=== PATIENT | female | born 1995 | race Two or more races ===

== ENCOUNTER 2019-03-17 02:27 | Emergency (ER) | payer OTHER ==
[~2019-03-17] VITALS: Ht 152.4 cm; Wt 47.6 kg
[2019-03-17] MEDS ORDERED: ONDANSETRON 4 MG/2 ML VIAL ONE ×2 (03:14→04:55)
[2019-03-17] MEDS ORDERED: ONDANSETRON 4 MG/2 ML VIAL IV ONE ×2 (03:15→05:00)
[2019-03-17] MEDS ORDERED: IV NS 1000 ML 1,000 ML IV ONE (03:15)
--- NOTE | 2019-03-17 03:15 | NUR ---
Patient walked into ER c/o intermitten N/V for 2 days with diarrhea that started yesterday.
[2019-03-17 03:44] LABS: CREATININE 0.6 mg/dL (0.6-1.3); POTASSIUM 3.9 mmol/L (3.5-5.1)
[2019-03-17 03:44] LABS: *BILIRUBIN,URIN NEGATIVE (NEGATIVE); *CLARITY,URINE CLEAR (CLEAR); *COLOR,URINE YELLOW (YELLOW); *KETONES,URINE NEGATIVE (NEGATIVE); *UROBILINOGEN,URINE 0.2 E.U./dl (NORMAL); LEUKOCYTE ESTERASE ,URINE NEGATIVE (NEGATIVE); NITRITE, URINE NEGATIVE (NEGATIVE); PH,URINE 6.5 (5.0-8.0); UGLUCOSE NEGATIVE (NEGATIVE)
[2019-03-17 03:45] LABS: BASOPHILS % (AUTO) 0.8 % (0.0-2.0); EOSINOPHILS # (AUTO) 0.1 K/uL (0.0-0.7); EOSINOPHILS % (AUTO) 1.8 % (0.0-7.0); HEMATOCRIT 40.6 % (31.2-41.9); HEMOGLOBIN 13.7 g/dL (10.9-14.3); LYMPHOCYTES # (AUTO) 0.8 K/uL (20.0-40.0); LYMPHOCYTES % (AUTO) 23.7 % (20.5-51.5); MEAN CORPUSCULAR HEMOGLOBIN 29.2 uug (24.7-32.8); MEAN CORPUSCULAR HGB CONC 34 g/dL (32.3-35.6); MEAN CORPUSCULAR VOLUME 86.2 fL (75.5-95.3); MONOCYTES # (AUTO) 0.5 K/uL (2.0-10.0); NEUTROPHILS # (AUTO) 2.1 K/uL (1.8-8.9); NEUTROPHILS % (AUTO) 58.7 % (38.5-71.5); PLATELET COUNT (AUTO) 154 K/uL (179-408); RED BLOOD CELL COUNT(AUTO) 4.71 MIL/uL (3.63-4.92); WHITE BLOOD COUNT (AUTO) 3.6 K/uL (3.8-11.8)
[2019-03-17 03:45] LABS: *BLOOD, URINE TRACE (NEGATIVE)
[2019-03-17 03:47] LABS: *URINE HCG, QUAL NEGATIVE (NEGATIVE)
[2019-03-17 03:50] LABS: BILIRUBIN,DIRECT 0.1 mg/dL (0.0-0.2); BILIRUBIN,TOTAL 0.4 mg/dL (0.2-1.0)
[2019-03-17 04:20] LABS: EOSINOPHILS % (MANUAL) 2 % (0-8); LYMPHOCYTES % (MANUAL) 23 % (20-40); MONOCYTES % (MANUAL) 15 % (2-10); NEUTROPHILS % (MANUAL) 60 % (42-75)
[2019-03-17 04:26] LABS: BACTERIA,URINE NONE SEEN /HPF (NONE SEEN); MUCUS,URINE MODERATE /LPF (0-FEW); SQUAMOUS EPITHELIAL CELL,UR MODERATE /HPF (NONE SEEN); WBC,URINE 0-3 /HPF (0-3)
[2019-03-17] MEDS ORDERED: KETOROLAC TROMETHAMINE 30 MG INJ ONE (04:51)
--- NOTE | 2019-03-17 04:58 | NUR ---
Patient unable to tolerate PO challenge at this time. After slowly drink H2O patient had 2 episode of N/V. Dr Dent aware.
[2019-03-17] MEDS ORDERED: KETOROLAC TROMETHAMINE 30 MG INJ IVP ONE (05:00)
[2019-03-17] MEDS ORDERED: IV D5/ 0.9% NACL 1,000 ML IV PRN (05:00)
--- NOTE | 2019-03-17 06:18 | NUR ---
Patient tolerated PO challenge with no N/V.
--- NOTE | 2019-03-17 06:21 | NUR ---
IV removed. Catheter intact and site benign. Pressure and 4x4 gauze applied to site. No bleeding noted.
--- NOTE | 2019-03-17 06:22 | NUR ---
Patient discharged to home in stable conditon. Written and verbal after care instructions given. Patient verbalizes understanding of instructions. Walked out of ER with no distress noted.
[2019-03-17 06:23] VITALS: BP 118/72
== END 2019-03-17 06:23 | disposition home or self-care (01) ==
LOC: ER 02:35
DX: S09.90XA Unspecified injury of head, initial encounter (principal); R11.10 Vomiting, unspecified; R19.7 Diarrhea, unspecified; J06.9 Acute upper respiratory infection, unspecified; R55 Syncope and collapse; R10.84 Generalized abdominal pain; W18.39XA Other fall on same level, initial encounter; Y93.89 Activity, other specified; Y92.89 Other specified places as the place of occurrence of the external cause; Y99.8 Other external cause status
CPT/HCPCS: 36415; 70450; 80048; 80076; 81000; 81001; 83690; 84703; 85007; 85025; 87400; 93005; 96361; 96374; 96375; 96376; 99284; J1885; J2405 ×2; J7042; 70030-TC; A4663; J7030